=== PATIENT | female | born 1970 | race Caucasian/White ===

== ENCOUNTER 2018-03-25 18:33 | Emergency (ER) | payer OTHER, MEDICAID ==
[2018-03-25] MEDS: IBUPROFEN 800 MG TAB PO (21:45)
== END 2018-03-25 23:24 | disposition home or self-care (01) ==
LOC: E/R 18:33
DX: R07.89 Other chest pain (principal); R40.2142 Coma scale, eyes open, spontaneous, at arrival to emergency department; R40.2252 Coma scale, best verbal response, oriented, at arrival to emergency department; R40.2362 Coma scale, best motor response, obeys commands, at arrival to emergency department
CPT/HCPCS: 71045; 81025; 93005; 99284-25

== ENCOUNTER 2018-10-21 18:57 | Emergency (ER) | payer OTHER | END 2018-10-22 00:48 | disposition home or self-care (01) | LOC: FTE 18:57 | DX: H00.015 Hordeolum externum left lower eyelid (principal); H00.012 Hordeolum externum right lower eyelid | CPT/HCPCS: 99283; Z7502 ==

== ENCOUNTER 2019-01-13 20:11 | Emergency (ER) | payer OTHER | END 2019-01-13 23:14 | disposition home or self-care (01) | LOC: FTE 23:14 | DX: R07.89 Other chest pain (principal) | CPT/HCPCS: 71045; 93005; 99284-25 ==

== ENCOUNTER 2019-01-15 08:05 | Emergency (ER) | payer OTHER ==
[2019-01-15] MEDS: LORAZEPAM 1 MG TAB PO (08:47)
== END 2019-01-15 09:17 | disposition home or self-care (01) ==
LOC: FTE 08:05
DX: R51 Headache (principal); F41.9 Anxiety disorder, unspecified
CPT/HCPCS: 99283; Z7610